=== PATIENT | male | born 1945 | race Caucasian/White ===

== ENCOUNTER → 2018-06-02 | Day surgery (SDC) | payer BC ==
[2018-05-30 10:10] LABS: Basophils # (auto) 0.1 uL; Basophils % (auto) 0.6 % (0.0-2.0); Eosinophils # (auto) 0.3 uL; Eosinophils % (auto) 3.4 % (0.0-7.0); Hematocrit 46.6 % (41.0-53.0); Hemoglobin 15.1 g/dL (13.5-17.5); Lymphocytes # (auto) 1.7 uL; Lymphocytes % (auto) 18.9 % (10.0-50.0); Mean Corpuscular Hemoglobin 28.9 pg (28.0-32.0); Mean Corpuscular Hgb Conc. 32.4 g/dL (32.0-36.0); Mean Corpuscular Volume 89.2 fL (80.0-100.0); Monocytes # (auto) 0.9 uL; Monocytes % (auto) 9.9 % (0.0-12.0); Neutrophils # (auto) 6.2 uL; Neutrophils % (auto) 67.2 % (37.0-80.0); Nucleated Red Blood Cells % 0.1 %; Platelet Count (auto) 250 10^3/uL (140-450); Red Blood Cells 5.22 10^6/uL (4.5-5.90); Red Cell Distribution Width 15.9 % (11.8-14.3); White Blood Cell 9.2 10^3/uL (4.4-10.8)
[2018-05-30 10:14] LABS: INR 0.95 (0.9-1.15); Partial Thromboplastin Time 27.4 sec (23.78-33.04); Prothrombin Time 10.2 sec (9.27-12.13); Urine Bacteria FEW /hpf (None Seen); Urine Blood 2+ /uL (Negative); Urine Budding Yeast OCCASIONAL /hpf (None Seen); Urine WBC 227 /hpf (0 - 3); Urine WBC Clumps PRESENT /hpf (None Seen)
[2018-05-30 10:41] LABS: Albumin 4.2 g/dL (3.4-5.0); Calcium 9.3 mg/dL (8.5-10.1); Potassium 3.9 mmol/L (3.5-5.1)
[2018-05-30 10:46] LABS: BUN/Creatinine Ratio 17.7; Bilirubin, Total 0.5 mg/dL (0.2-1.0); Total Protein 8.1 g/dL (6.4-8.2)
[~2018-06-02] VITALS: Ht 185.4 cm; Wt 122.5 kg
[~2018-06-02] MED LIST: ACCU-CHEK COMFORT CURVE STRIP VI ONE; ALL300T PO; AMLO5TAB13 PO; ASPI81TA27 PO; ATOR20TA50 PO; CINN500C7 PO; CLOP75TA28 PO; GABA-339 PO; GLIP-110 PO; HYDR25TA4 PO; HYDROmorphone HCL 2 MG/ML VL IV PRN; MEPERIDINE HCL (50 MG/ML) 1 ML VIAL ONE; METO-169 PO; METOCLOPRAMIDE HCL 5MG/ml INJ 2ml VIAL IV ONE; MIDAZOLAM HCL 1MG/1ML-2 ML VIAL ONE; OMEG100078 PO; OMEP20TA PO; ONDANSETRON HCL 4 MG/2 ML VIAL ONE; PIO30T PO; PROPOFOL 10 MG/ML 20 ML IV ONE; ROCURONIUM 10MG/ML 10ML VIAL IV ONE; SODIUM CHLORIDE LOCK 20 ML ONE; TAMS0.4C36 PO; VANCOMYCIN HCL 1000 MG VL ONE; [UNRECOGNIZED DRUG - CODE] OR; [UNRECOGNIZED DRUG - CODE] PO; fentaNYL CITRATE 100 MCG/2 ML VL ONE
[2018-06-02 11:56] VITALS: BP 137/75
== END | disposition home or self-care (01) ==
LOC: SUR 07:36
PROVIDERS: ATTEND Urology
DX: C67.2 Malignant neoplasm of lateral wall of bladder (principal); C67.4 Malignant neoplasm of posterior wall of bladder; I10 Essential (primary) hypertension; E78.5 Hyperlipidemia, unspecified; E11.9 Type 2 diabetes mellitus without complications; Z98.890 Other specified postprocedural states; Z79.899 Other long term (current) drug therapy; Z95.5 Presence of coronary angioplasty implant and graft; Z79.82 Long term (current) use of aspirin
CPT/HCPCS: 36415; 52240; 80053; 81001; 82962; 85025; 85610; 85730; 87086; 87088; 87186; J2175; J2250; J2405; J2704; J3010; J3370; J7050

== ENCOUNTER 2018-11-17 10:59 | Emergency (ER) | payer BC ==
[~2018-11-17] VITALS: Ht 185.4 cm; Wt 122.5 kg
[~2018-11-17 10:59] MED LIST changes: -ACCU-CHEK COMFORT CURVE STRIP VI ONE; -AMLO5TAB13 PO; +AMLO5TAB15 PO; +ASPI-404 PO; -ASPI81TA27 PO; -HYDROmorphone HCL 2 MG/ML VL IV PRN; -MEPERIDINE HCL (50 MG/ML) 1 ML VIAL ONE; -METOCLOPRAMIDE HCL 5MG/ml INJ 2ml VIAL IV ONE; -MIDAZOLAM HCL 1MG/1ML-2 ML VIAL ONE; -ONDANSETRON HCL 4 MG/2 ML VIAL ONE; -PROPOFOL 10 MG/ML 20 ML IV ONE; -ROCURONIUM 10MG/ML 10ML VIAL IV ONE; -SODIUM CHLORIDE LOCK 20 ML ONE; -VANCOMYCIN HCL 1000 MG VL ONE; -fentaNYL CITRATE 100 MCG/2 ML VL ONE
[2018-11-17 11:45] LABS: Basophils # (auto) 0.1 uL; Basophils % (auto) 0.6 % (0.0-2.0); Eosinophils # (auto) 0.1 uL; Hematocrit 38.4 % (41.0-53.0); Hemoglobin 12.6 g/dL (13.5-17.5); Lymphocytes # (auto) 1.6 uL; Lymphocytes % (auto) 16.7 % (10.0-50.0); Mean Corpuscular Hemoglobin 29.4 pg (28.0-32.0); Mean Corpuscular Hgb Conc. 32.7 g/dL (32.0-36.0); Mean Corpuscular Volume 89.9 fL (80.0-100.0); Monocytes # (auto) 0.9 uL; Monocytes % (auto) 9.4 % (0.0-12.0); Neutrophils # (auto) 6.7 uL; Neutrophils % (auto) 72.3 % (37.0-80.0); Platelet Count (auto) 259 10^3/uL (140-450); Red Blood Cells 4.27 10^6/uL (4.5-5.90); Red Cell Distribution Width 16.2 % (11.8-14.3); White Blood Cell 9.3 10^3/uL (4.4-10.8)
[2018-11-17 12:07] LABS: Urine Bacteria NONE SEEN /hpf (None Seen); Urine Blood 3+ /uL (Negative); Urine Specific Gravity 1.018 (1.001-1.035)
[2018-11-17 12:15] LABS: Urine WBC 4 /hpf (0 - 3)
[2018-11-17 12:16] LABS: INR 0.98 (0.9-1.15); Partial Thromboplastin Time 27.6 sec (23.64-32.05)
[2018-11-17] MEDS ORDERED: LIDOCAINE 2% JELLY 11ml (GLYDO) UR ONE (13:45)
[2018-11-17 14:32] VITALS: BP 138/65
== END 2018-11-17 14:41 | disposition home or self-care (01) ==
LOC: ER 10:59
DX: N39.0 Urinary tract infection, site not specified (principal); R31.9 Hematuria, unspecified; Z88.6 Allergy status to analgesic agent; Z79.82 Long term (current) use of aspirin; Z79.84 Long term (current) use of oral hypoglycemic drugs; Z79.899 Other long term (current) drug therapy
CPT/HCPCS: 36415; 81001; 85025; 85610; 85730

== ENCOUNTER → 2020-04-15 | Outpatient (CLI) | payer BC ==
[~2020-04-15] VITALS: Ht 185.4 cm; Wt 127.0 kg
[~2020-04-15] MED LIST changes: +ALLO100T PO; +AMLO-489 PO; -AMLO5TAB15 PO; -ASPI-404 PO; +ASPI-543 PO; +CIPROFLOXACIN 400MG/200ML 200 ML IV ONE; +EZET10TA22 PO; +FERR-20 PO; +FURO40TA4 PO; +LOSA-39 PO
[2020-04-18 09:00] VITALS: BP 147/71
== END | disposition home or self-care (01) ==
LOC: LAB 10:50 → SUR 04-18 08:11 → EDSTATUS 04-18 10:00
PROVIDERS: ATTEND Urology
DX: Z01.812 Encounter for preprocedural laboratory examination (principal); Z20.822 Contact with and (suspected) exposure to COVID-19; C67.9 Malignant neoplasm of bladder, unspecified; D64.9 Anemia, unspecified
CPT/HCPCS: 82962; J1642

== ENCOUNTER 2020-06-23 18:48 | Inpatient (IN) | payer BC ==
[~2020-06-23] VITALS: Ht 190.5 cm; Wt 128.8 kg
[~2020-06-23 18:48] MED LIST changes: -ALL300T PO; -AMLO-489 PO; -CINN500C7 PO; -CIPROFLOXACIN 400MG/200ML 200 ML IV ONE; -CLOP75TA28 PO; -HYDR25TA4 PO; -METO-169 PO; +METO-289 PO; -[UNRECOGNIZED DRUG - CODE] OR
[2020-06-23 20:42] LABS: Basophils # (auto) 0 10 ^3/uL (0-0.2); Basophils % (auto) 0.3 % (0.0-2.0); Eosinophils # (auto) 0.1 10 ^3/uL (0-0.8); Eosinophils % (auto) 0.9 % (0.0-7.0); Hematocrit 35.6 % (41.0-53.0); Hemoglobin 11.7 g/dL (13.5-17.5); Lymphocytes # (auto) 1.3 10 ^3/uL (0.4-5.4); Lymphocytes % (auto) 13.3 % (10.0-50.0); Mean Corpuscular Hemoglobin 31.7 pg (28.0-32.0); Mean Corpuscular Hgb Conc. 32.8 g/dL (32.0-36.0); Mean Corpuscular Volume 96.9 fL (80.0-100.0); Monocytes # (auto) 0.7 10 ^3/uL (0-1.3); Monocytes % (auto) 7.7 % (0.0-12.0); Neutrophils # (auto) 7.5 10 ^3/uL (1.6-8.6); Neutrophils % (auto) 77.8 % (37.0-80.0); Nucleated Red Blood Cells % 0.1 %; Red Blood Cells 3.68 10^6/uL (4.5-5.90); Red Cell Distribution Width 17.3 % (11.8-14.3); White Blood Cell 9.7 10^3/uL (4.4-10.8)
[2020-06-23 21:07] LABS: Albumin 3.2 g/dL (3.4-5.0); Anion Gap 10 (5-15); Blood Urea Nitrogen 76 mg/dL (7-18); Calcium 9.3 mg/dL (8.5-10.1); Carbon Dioxide 23 mmol/L (21-32); Chloride 103 mmol/L (98-107); Glucose 99 mg/dL (74-106); Magnesium 2.7 mg/dL (1.6-2.6); Potassium 3.6 mmol/L (3.5-5.1); Sodium 136 mmol/L (136-145)
[2020-06-23 21:10] LABS: Alanine Aminotransferase 37 U/L (16-61); Aspartate Aminotransferase 37 U/L (15-37); BUN/Creatinine Ratio 30.5; Blood Alcohol < 3.0 mg/dL (0-5); GFR African American 33 mL/min; GFR Non-African American 27 mL/min
[2020-06-23 21:12] LABS: Alkaline Phosphatase 103 U/L (45-117); Bilirubin, Total 0.6 mg/dL (0.2-1.0)
[2020-06-23 22:32] LABS: Partial Thromboplastin Time 24.8 sec (23.0-31.2)
[2020-06-23] MEDS ORDERED: AZITHROMYCIN 500MG/ 250ML 250 ML IV ONE (23:00)
[2020-06-23] MEDS ORDERED: DOXYCYCLINE 100MG/250ML 250 ML IV ONE (23:00)
[2020-06-23] MEDS ORDERED: DexAMETHasone SOD PHOS 10MG/1ML VIAL INJ IV ONE (23:00)
[2020-06-23 23:03] LABS: Alcohol, Urine < 3.0 mg/dL (0-10); Amphetamine Screen, Urine NEGATIVE (NEGATIVE); Barbiturate Scree,Urine NEGATIVE (NEGATIVE); Benzodiazephine Screen, Urine NEGATIVE (NEGATIVE); Cannabinoid Screen, Urine POSITIVE (NEGATIVE); Cocaine Screen, Urine NEGATIVE (NEGATIVE); Opiate Scree,Urine POSITIVE (NEGATIVE); Phencyclidine Screen, Urine NEGATIVE (NEGATIVE); Urine Bacteria NONE SEEN /hpf (None Seen); Urine Blood 3+ /uL (Negative); Urine WBC 754 /hpf (0 - 3)
[2020-06-24] VITALS (7 sets, daily range): BP systolic 104–152; BP diastolic 68–92
[2020-06-24] MEDS ORDERED: DOCUSATE SOD 100 MG CAP PO PRN (01:00)
[2020-06-24] MEDS ORDERED: SODIUM CHLORIDE 0.9% 1,000 ML IV SCH (01:00)
[2020-06-24] MEDS ORDERED: ACETAMINOPHEN 325 MG TAB PO PRN (01:00)
[2020-06-24] MEDS: DOXYCYCLINE 100MG/250ML 250 ML IV SCH ×2 (01:00→13:06)
[2020-06-24] MEDS ORDERED: NITROGLYCERIN 0.4 MG SL TAB SL PRN (01:00)
[2020-06-24] MEDS ORDERED: IPRATROPIUM BROM 0.5 MG/2.5ML INH SOL NEB PRN (01:15)
[2020-06-24] MEDS ORDERED: ALBUTEROL SULF 2.5 MG/0.5ML(0.5%) NEB SOLN NEB PRN (01:15)
[2020-06-24] MEDS: HYDROcodone-ACET 5/325MG TAB PO PRN ×2 (08:02→12:55)
[2020-06-24 08:58] LABS: Basophils # (auto) 0 10 ^3/uL (0-0.2); Basophils % (auto) 0.2 % (0.0-2.0); Eosinophils # (auto) 0 10 ^3/uL (0-0.8); Hematocrit 35.4 % (41.0-53.0); Hemoglobin 11.6 g/dL (13.5-17.5); Lymphocytes # (auto) 0.6 10 ^3/uL (0.4-5.4); Lymphocytes % (auto) 7.2 % (10.0-50.0); Mean Corpuscular Hemoglobin 31.1 pg (28.0-32.0); Mean Corpuscular Hgb Conc. 32.6 g/dL (32.0-36.0); Mean Corpuscular Volume 95.2 fL (80.0-100.0); Monocytes # (auto) 0.1 10 ^3/uL (0-1.3); Neutrophils # (auto) 8.1 10 ^3/uL (1.6-8.6); Neutrophils % (auto) 91.6 % (37.0-80.0); Nucleated Red Blood Cells % 0.1 %; Red Blood Cells 3.72 10^6/uL (4.5-5.90); Red Cell Distribution Width 16.9 % (11.8-14.3); White Blood Cell 8.8 10^3/uL (4.4-10.8)
[2020-06-24] MEDS: cefTRIAXone 1GM/50ML D5W 50 ML IV SCH (09:00)
[2020-06-24 09:09] LABS: Albumin 3.2 g/dL (3.4-5.0); Calcium 9.6 mg/dL (8.5-10.1); Magnesium 2.9 mg/dL (1.6-2.6); Potassium 3.3 mmol/L (3.5-5.1)
[2020-06-24 09:13] LABS: BUN/Creatinine Ratio 29.2; Bilirubin, Total 0.6 mg/dL (0.2-1.0)
[2020-06-24] MEDS ORDERED: HEPARIN SODIUM (PORCINE) 5000 UNITS/ML 1ML VIAL SC SCH (10:00)
[2020-06-24] MEDS: ASCORBIC ACID 500 MG TAB PO SCH ×2 (10:50→22:12)
[2020-06-24] MEDS: ZINC SULFATE 220mg CAP or TAB PO SCH (10:50)
[2020-06-24] MEDS: FAMOTIDINE (10MG/ML) 2ML VL IV SCH (10:50)
[2020-06-24] MEDS: MULTIPLE VITAMIN TAB PO SCH (10:50)
[2020-06-24] MEDS: HYDROmorphone HCL 2 MG/ML VL IV PRN ×2 (15:27→20:33)
[2020-06-24] MEDS ORDERED: POTASSIUM CHL 20 Meq TABLET PO ONE (17:00)
[2020-06-24] MEDS ORDERED: DEXTROSE (50%) 50ML SYRG IV PRN (17:15)
[2020-06-24] MEDS: TAMSULOSIN HYDROCHLORIDE 0.4 MG CAP PO SCH (18:26)
[2020-06-24] MEDS: FERROUS SULFATE 325mg EC TAB PO SCH (18:26)
[2020-06-24] MEDS ORDERED: HEPARIN SODIUM (PORCINE) 5000 UNITS/ML 1ML VIAL IV ONE ×2 (20:15→22:00)
[2020-06-24] MEDS ORDERED: HEPARIN DRIP/D5W 100UNITS/ML 250 ML IV SCH ×2 (20:15→22:00)
[2020-06-24] MEDS: ONDANSETRON HCL 4 MG/2 ML VIAL IV PRN (20:40)
[2020-06-24] MEDS ORDERED: ATORVASTATIN 20 MG TAB PO SCH (22:00)
[2020-06-24] MEDS: ACCU-CHEK COMFORT CURVE STRIP VI SCH (22:00)
[2020-06-24 22:03] LABS: Basophils # (auto) 0 10 ^3/uL (0-0.2); Basophils % (auto) 0.1 % (0.0-2.0); Eosinophils # (auto) 0 10 ^3/uL (0-0.8); Hematocrit 35.7 % (41.0-53.0); Hemoglobin 12.1 g/dL (13.5-17.5); Lymphocytes # (auto) 0.5 10 ^3/uL (0.4-5.4); Lymphocytes % (auto) 4.9 % (10.0-50.0); Mean Corpuscular Hemoglobin 31.9 pg (28.0-32.0); Mean Corpuscular Hgb Conc. 33.9 g/dL (32.0-36.0); Mean Corpuscular Volume 94.2 fL (80.0-100.0); Monocytes # (auto) 0.6 10 ^3/uL (0-1.3); Monocytes % (auto) 5.9 % (0.0-12.0); Neutrophils # (auto) 8.7 10 ^3/uL (1.6-8.6); Neutrophils % (auto) 89.1 % (37.0-80.0); Nucleated Red Blood Cells % 0.1 %; Red Blood Cells 3.78 10^6/uL (4.5-5.90); Red Cell Distribution Width 16.9 % (11.8-14.3); White Blood Cell 9.7 10^3/uL (4.4-10.8)
[2020-06-24] MEDS: InsuLIN REG 1unit/0.01ml Soln (100units/ml) SC SCH (22:15)
[2020-06-24 22:43] LABS: INR 1.04 (0.9-1.15); Partial Thromboplastin Time 26.1 sec (23.0-31.2)
[2020-06-25] MEDS ORDERED: LORazepam 2MG/ML-1ML VIAL IV PRN (00:15)
[2020-06-25] MEDS: HYDROmorphone HCL 2 MG/ML VL IV PRN ×3 (00:43→09:18)
[2020-06-25] MEDS: DOXYCYCLINE 100MG/250ML 250 ML IV SCH ×2 (04:46→13:21)
[2020-06-25] MEDS: ACCU-CHEK COMFORT CURVE STRIP VI SCH ×3 (04:47→17:00)
[2020-06-25 05:00] VITALS: BP 111/84
[2020-06-25] MEDS: ONDANSETRON HCL 4 MG/2 ML VIAL IV PRN (05:05)
[2020-06-25] MEDS: InsuLIN REG 1unit/0.01ml Soln (100units/ml) SC SCH ×3 (05:06→17:00)
[2020-06-25 06:17] LABS: Basophils # (auto) 0 10 ^3/uL (0-0.2); Basophils % (auto) 0.1 % (0.0-2.0); Eosinophils # (auto) 0 10 ^3/uL (0-0.8); Eosinophils % (auto) 0.1 % (0.0-7.0); Hematocrit 33.9 % (41.0-53.0); Hemoglobin 11.2 g/dL (13.5-17.5); Lymphocytes % (auto) 7.3 % (10.0-50.0); Mean Corpuscular Hemoglobin 31.5 pg (28.0-32.0); Mean Corpuscular Volume 95.4 fL (80.0-100.0); Monocytes # (auto) 1.3 10 ^3/uL (0-1.3); Monocytes % (auto) 9.5 % (0.0-12.0); Neutrophils # (auto) 11.6 10 ^3/uL (1.6-8.6); Red Blood Cells 3.56 10^6/uL (4.5-5.90); Red Cell Distribution Width 17.4 % (11.8-14.3); White Blood Cell 13.9 10^3/uL (4.4-10.8)
[2020-06-25 06:31] LABS: Potassium 4.5 mmol/L (3.5-5.1)
[2020-06-25 06:40] LABS: Albumin 3.3 g/dL (3.4-5.0); BUN/Creatinine Ratio 25.8; Bilirubin, Total 0.6 mg/dL (0.2-1.0); Calcium 9.7 mg/dL (8.5-10.1); Total Protein 7.9 g/dL (6.4-8.2)
[2020-06-25 07:57] LABS: INR 1.13 (0.9-1.15)
[2020-06-25 08:00] LABS: Partial Thromboplastin Time 119.2 sec (23.0-31.2)
[2020-06-25] MEDS: FERROUS SULFATE 325mg EC TAB PO SCH ×3 (08:09→18:00)
[2020-06-25 09:00] VITALS: BP 101/73
[2020-06-25] MEDS: ZINC SULFATE 220mg CAP or TAB PO SCH (09:15)
[2020-06-25] MEDS: FAMOTIDINE (10MG/ML) 2ML VL IV SCH (09:15)
[2020-06-25] MEDS: MULTIPLE VITAMIN TAB PO SCH (09:15)
[2020-06-25] MEDS: cefTRIAXone 1GM/50ML D5W 50 ML IV SCH (09:15)
[2020-06-25] MEDS: ASCORBIC ACID 500 MG TAB PO SCH (09:16)
[2020-06-25] MEDS ORDERED: LOSARTAN POTASSIUM 50 MG TAB PO SCH (10:00)
[2020-06-25] MEDS ORDERED: ALLOPURINOL 100 MG TAB PO SCH (10:00)
[2020-06-25] MEDS ORDERED: METOPROLOL SUCCINATE XL 50 MG TAB PO SCH (10:00)
[2020-06-25] MEDS ORDERED: PANTOPRAZOLE 40 MG TAB PO SCH (10:00)
[2020-06-25 13:00] VITALS: BP 102/70
[2020-06-25] MEDS ORDERED: SODIUM CHLORIDE 0.9% 1,000 ML IV ONE (16:15)
[2020-06-25 17:00] VITALS: BP 113/71
[2020-06-25 17:49] VITALS: BP 110/74
[2020-06-25] MEDS: TAMSULOSIN HYDROCHLORIDE 0.4 MG CAP PO SCH (18:00)
[2020-06-27 10:07] LABS: Folate (Folic Acid) > 24.00 ng/mL (5.38-24)
== END 2020-06-25 18:45 | disposition hospice, home (50) | DRG 917 ==
LOC: EDBD 18:48 → ER 18:48 → EDSEX 18:48 → TELE 06-24 01:00 → TELE-EAST 06-24 02:27
PROVIDERS: ADMIT Nurse Practitioner Family; ATTEND Internal Medicine
DX: T40.2X1A Poisoning by other opioids, accidental (unintentional), initial encounter (principal); J18.9 Pneumonia, unspecified organism; G92 Toxic encephalopathy; N17.0 Acute kidney failure with tubular necrosis; C79.51 Secondary malignant neoplasm of bone; N39.0 Urinary tract infection, site not specified; C78.00 Secondary malignant neoplasm of unspecified lung; I13.0 Hypertensive heart and chronic kidney disease with heart failure and stage 1 through stage 4 chronic kidney disease, or unspecified chronic kidney disease; R78.81 Bacteremia; M84.48XA Pathological fracture, other site, initial encounter for fracture; E66.01 Morbid (severe) obesity due to excess calories; Z20.822 Contact with and (suspected) exposure to COVID-19; Z51.5 Encounter for palliative care; B96.89 Other specified bacterial agents as the cause of diseases classified elsewhere; C67.9 Malignant neoplasm of bladder, unspecified; D64.9 Anemia, unspecified; E11.22 Type 2 diabetes mellitus with diabetic chronic kidney disease; E78.5 Hyperlipidemia, unspecified; E87.5 Hyperkalemia; I25.10 Atherosclerotic heart disease of native coronary artery without angina pectoris; R31.9 Hematuria, unspecified; I27.21 Secondary pulmonary arterial hypertension; N18.32 Chronic kidney disease, stage 3b; Z77.090 Contact with and (suspected) exposure to asbestos; I50.9 Heart failure, unspecified; Z85.51 Personal history of malignant neoplasm of bladder; Z87.891 Personal history of nicotine dependence; Z95.5 Presence of coronary angioplasty implant and graft; Z68.35 Body mass index [BMI] 35.0-35.9, adult; Z79.899 Other long term (current) drug therapy; Z71.3 Dietary counseling and surveillance; Y92.89 Other specified places as the place of occurrence of the external cause; Z88.5 Allergy status to narcotic agent; Z88.6 Allergy status to analgesic agent
CPT/HCPCS: 36415; 70450; 70551; 71045; 71250; 72192; 73502; 80053; 80307; 80320; 81001; 82607; 82746; 82962; 83605; 83735; 83880; 84484; 85025; 85379; 85610; 85730; 87040; 87077; 87086; 87186; 87426; 93306; 93970; 96365; 96367; 96375; 99291; G0378; J0696; J1100; J1815; J2405; J3490